=== PATIENT | female | born 2005 | race Caucasian/White ===

== ENCOUNTER 2024-07-03 09:50 | Emergency (ER) | payer SELFPAY ==
[2024-07-03 09:56] VITALS: BP 123/81
[2024-07-03 10:30] VITALS: BP 124/79
[2024-07-03] MEDS: ZOFRAN ODT (ORALLY DISINTEGRATING) 4 MG PO (10:33)
[2024-07-03] MEDS: TYLENOL 650 MG PO (10:33)
--- NOTE | 2024-07-03 10:55 | ED.GENMED ---
History of Present Illness
General
Chief Complaint: Head Injury
Source: patient
Exam Limitations: none
Time Seen by Provider: 07/03/24 10:04
Nursing documentation reviewed up to this point in time: agreed with
History of Present Illness
History of Present Illness:
Patient presents to ED for evaluation after she was knocked forward by a horse while working this morning. Patient states that the horse was startled and raised his hind legs, which made contact with her upper chest/shoulder, as well as right side
of her head. Impact caused her to fall forward. Afterwards, horse jumped over her, and in the process, glazed her right lower leg. Denies any other injuries. Denies loss of consciousness. Denies neck pain. Denies blurred vision. Denies
dizziness. Denies nausea or vomiting. Patient has been able to ambulate without difficulty. Denies abdominal pain. Denies chest pain or shortness of breath.
Review of Systems
Review of Systems
Allergies reviewed?: Yes
All Other Systems: ROS reviewed and negative except as documented in HPI and ROS
Constitutional: Reports no symptoms; Denies fever
Respiratory: Reports no symptoms; Denies trouble breathing
Cardiac: Reports no symptoms; Denies chest pain
ABD/GI: Reports no symptoms; Denies nausea or vomiting
: Reports no symptoms
Musculoskeletal: Reports other (leg pain)
Skin: Reports no symptoms
Neurological: Reports headache; Denies dizzy, weakness or numbness
Phy Exam
Physical Exam
Physical Exam:
Physical Exam
General: no apparent distress, not acutely ill. afebrile
Head: nc/at. eomi
Neck: supple. normal range of motion. no midline tenderness.
Heart: s1/s2 regular rate and rhythm
Lungs: no acute respiratory distress. clear bilaterally. chest wall nontender to palpation
Abdomen: normal bowel sounds. not tender.
Neuro: alert and oriented x 3. no focal neurological deficits. normal speech. normal gait
Skin: superficial abrasion noted over lateral aspect of right calf, without ecchymosis/swelling/erythema
Psychiatric: well kept. interactive and cooperative
Extremities: no edema. no calf tenderness.
Course
Orders/Labs/Results
Orders:
Orders
07/03/24 10:27
Acetaminophen [Tylenol] 650 mg PO NOW STA
Ondansetron Orally Disint [Zofran Odt (Orally Disintegrating)] 4 mg PO NOW STA
07/03/24 10:28
CT Head W/o Iv Contrast Urgent
Comment:
Reason For Exam: trauma
Vital Signs
Initial and Last Documented VS:
Initial Vital Signs
Temp Pulse Resp BP Pulse Ox
98.4 F 92 16 123/81 100
07/03/24 09:56 07/03/24 09:56 07/03/24 09:56 07/03/24 09:56 07/03/24 09:56
Last Documented Vital Signs
Temp Pulse Resp BP Pulse Ox
98.4 F 78 19 119/68 100
07/03/24 09:56 07/03/24 11:15 07/03/24 11:15 07/03/24 11:01 07/03/24 09:56
MDM/Problems Addressed
MDM/Problems Addressed:
CT head report reviewed and discussed with patient. Patient otherwise remains afebrile, hemodynamically stable, neurologically intact, without any acute distress. Patient's presenting symptoms likely secondary to an acute trauma, with resolved
postconcussive syndrome along with soft tissue contusion. Patient will be discharged home in stable condition, with recommendation to follow-up with work comp physician for reevaluation.
*Critical Care Note
Total Time (30-74mins, 75-104mins- exclusive of procedures): Not Applicable
ED Attending Note
-
Portions of this chart may have been created with voice recognition software.� Occasional wrong word or��sound alike� substitutions may have occurred due to the inherent limitations of voice recognition software.
Discharge Plan
Departure
Patient Disposition: Home (Routine Discharge)
Date of Disposition: 07/03/24
Time of Disposition: 12:28
Patient with high blood pressure during this ER visit?: Yes
Condition: Good
Discharge Problem:
Head injury, Contusion
Instructions: Head Injury in Adults (DC), Contusion (DC)
Referrals:
UNKNOWN - PT DOES,NOT KNOW [Family Provider] -
Stand Alone Forms: Return to Work
Activity Restrictions/Additional Instructions:
As discussed, please follow-up with your work comp physician for reevaluation, prior to returning to work without restriction. In ED, CT head did not reveal any acute abnormal findings. Recommend icing injured right lower leg, along with
Tylenol/Motrin for pain relief.
Interventions
Interventions:
*Risk Screen - Suicide Last Done: 07/03/24 10:02
*General Assessment Last Done: 07/03/24 10:02
*Neglect/Abuse Screening Last Done: 07/03/24 10:02
*ED COVID-19 Vaccine History Last Done: 07/03/24 10:02
*Nursing Disposition Last Done: 07/03/24 12:37
ED-Musculoskeletal Assessment Last Done: 07/03/24 10:02
ED- Neurological Assessment Last Done: 07/03/24 10:02
ED-Skin Assessment Last Done: 07/03/24 10:02
Discharge Date and Time
Discharge Date/Time: 07/03/24 12:40
Print Language: [id number]
[2024-07-03 11:01] VITALS: BP 119/68
== END 2024-07-03 12:40 | disposition home or self-care (01) ==
LOC: EMR 09:50
PROVIDERS: EMERGENCY PHYSICIAN Emergency Medicine
DX: S09.90XA Unspecified injury of head, initial encounter (principal); W19.XXXA Unspecified fall, initial encounter
CPT/HCPCS: 99284; 70450